=== PATIENT | male | born 1960 | race Caucasian/White ===

== ENCOUNTER 2022-10-21 08:24 | Inpatient (IN) | payer BC ==
--- OUTSIDE RECORDS SUMMARY | 2022-10-21 08:28 | XMS REPORT | Continuity of Care Document ---
:1960 Author Organization [facility] t Address [address] [place] [address] Care Team Providers Name Role Phone FLAQUITO ZALDIVAR JR Primary Care Physician Unavailable Nurse, Adc Pob Immunization Attending Clinician Unavailable Zuly León DO Attending Clinician ZULY LEÓN Attending Clinician Unavailable JOE PISANO Attending Clinician Unavailable SHERIN CONTRERAS Attending Clinician Unavailable Pob1, Acute Care Clinic Attending Clinician Unavailable Sherin Butcher Attending Clinician Payers Payer Name Policy Type Policy Number Effective Date Expiration Date S ource Problems Condition Condition Condition Status Onset Resolution Last Treating Co mments Source Name Details Category Date Date Treatment Clinician Date No known No known Disease Unive rs active active ity of problems problems [facility] Allergies, Adverse Reactions, Alerts Allergy Allergy Status Severity Reaction(s) Onset Inactive Treating Comm ents Source Name Type Date Date Clinician NO KNOWN Drug Active Univers ALLERGIE Class ity of S [facility] Social History Social Habit Start Date Stop Date Quantity Comments Source Tobacco use and 2019-08-22 2019-08-22 Never used [facility] exposure 00:00:00 00:00:00 [facility] Sex [birth year] [facility] 00:00:00 00:00:00 [facility] Smoking Status Start Date Stop Date Source Never smoker [facility] Medications Ordered Filled Start Stop Current Ordering Indication Dosage Frequency Signature Comments Components Source Medication Medication Date Date Medication? Clinician (SIG) Name Name benzonatate 2020- No [id number] 100mg Take 1 Univers (TESSALON 4-23 05-08 capsule by itFlorian) 100 00:00[place] 04:59 [place] capsule 00 :00 (three) [facility] daily for 14 days. gabapentin 2019-0 Yes Univers 300 mg 4-05 ity of capsule 00:00: [facility] gabapentin 2020-0 Yes Univers 300 mg 4-05 ity of capsule 00:00: [facility] allopurinoL 2019-0 Yes Univer s 300 mg 3-30 ity of tablet 00:00: [facility] glipiZIDE 2019-0 Yes Univers XL 10 mg 24 3-30 ity of hr tablet 00:00: [facility] amLODIPine 2019-0 Yes Univers 5 mg tablet 3-30 ity of 00:00: [facility] BYSTOLIC 5 2019-0 Yes Univers mg tablet 3-30 ity of 00:00: [facility] pravastatin 2019-0 Yes Univer s 40 mg 3-30 ity of tablet 00:00: [place] [address] [facility] valsartan 2019-0 Yes Univers 320 mg 3-30 ity of tablet 00:00: [place] [address] [facility] furosemide 2019-0 Yes Univers 40 mg 3-30 ity of tablet 00:00: [place] [address] [facility] potassium 2019-0 Yes Univers chloride 10 3-30 ity of mEq CR 00:00: [facility] 00 Medical Branch ONETOUCH 2019-0 Yes Univers ULTRA BLUE 3-30 ity of TEST STRIP 00:00: [facility] 00 Medical Branch allopurinoL 2019-0 Yes Univer s 300 mg 3-30 ity of tablet 00:00: [facility] glipiZIDE 2020-0 Yes Univers XL 10 mg 24 3-30 ity of hr tablet 00:00: [facility] amLODIPine 2019-0 Yes Univers 5 mg tablet 3-30 ity of 00:00: [place] [address] [facility] BYSTOLIC 5 2019-0 Yes Univers mg tablet 3-30 ity of 00:00: [place] [address] [facility] pravastatin 2020-0 Yes Univer s 40 mg 3-30 ity of tablet 00:00: [facility] valsartan 2020-0 Yes Univers 320 mg 3-30 ity of tablet 00:00: [facility] furosemide 2020-0 Yes Univers 40 mg 3-30 ity of tablet 00:00: [place] 00 [facility] potassium 2020-0 Yes Univers chloride 10 3-30 ity of mEq CR 00:00: [place] tablet 00 Medical Branch ONETOUCH 2020-0 Yes Univers ULTRA BLUE 3-30 ity of TEST STRIP 00:00: [place] strip 00 Medical Branch SSD 1 % 2020-0 Yes APPLY AA Univer s cream 3-20 QD. ity of 00:00: [facility] SSD 1 % 2020-0 Yes APPLY AA Univer s cream 3-20 QD. ity of 00:00: [place] [facility] Immunizations Ordered Filled Immunization Date Status Comments [facility] e Immunization Name Name SARS-COV-2 COVID-19 2021-02-25 Completed Unive rsity of MODERNA BOOSTER 00:00:00 [facility] ica VACCINE Branch SARS-COV-2 COVID-19 2020-07-26 Completed Unive rsity of MODERNA VACCINE 00:00:[facility] [place] SARS-COV-2 COVID-19 2020-06-28 Completed Unive rsity of MODERNA VACCINE 00:00:00 [facility] Vital Signs Vital Name Observation Time Observation Value Comments Source Systolic blood 2019-08-22 18:48:00 131 mm[Hg] Univer sity of pressure [facility] Diastolic blood 2019-08-22 18:48:00 76 mm[Hg] Unive rsity of pressure [facility] Heart rate 2019-08-22 18:46:00 75 /min [facility] Body temperature 2019-08-22 18:46:00 36.89 [facility] rate 2019-08-22 18:46:00 20 /min [facility] Body height 2019-08-22 18:46:00 168.9 cm [facility] Body weight 2019-08-22 18:46:00 163.295 kg [facility] BMI 2019-08-22 18:46:00 57.24 kg/m2 [facility] Oxygen saturation in 2019-08-22 18:46:00 96 /min [facility] Arterial blood by [facility] Pulse oximetry Branch Systolic blood 2019-08-22 18:48:00 131 mm[Hg] Univer sity of pressure [facility] Diastolic blood 2019-08-22 18:48:00 76 mm[Hg] Unive rsity of pressure [facility] Heart rate 2019-08-22 18:46:00 75 /min [facility] Body temperature 2019-08-22 18:46:00 36.89 Mary Univ ersity of [facility] Respiratory rate 2019-08-22 18:46:00 20 /min [facility] Body height 2019-08-22 18:46:00 168.9 cm [facility] Body weight 2019-08-22 18:46:00 163.295 kg [facility] BMI 2019-08-22 18:46:00 57.24 kg/m2 [facility] Oxygen saturation in 2019-08-22 18:46:00 96 /min [facility] Arterial blood by [facility] Pulse oximetry [place] Procedures Procedure Date / Time Performed Performing Clinician [facility] e SARS-COV-2 COVID-19 2021-02-25 19:22:52 Doctor Unassigned, No [facility] [place] VACCINE Name [facility] BOOSTER,0.25ML,IM (MODERNA) Encounters Start End Encounter Admission Attending Care Care Encounter Source Date/Time Date/Time Type Type Clinicians Facility Department ID 2021-02-25 2021-02-25 Imm/Inj Nurse, Adc Pob Immunization [facility] [id number] Univers 14:20:31 14:20:47 Visit Zuly León [id number] [facility] [id number] John helms PROFESSIO [phone] Tn dical NAL [address] [facility] 2021-02-25 2021-02-25 Outpatient Jose LEÓN [facility] [id number] Univers 14:00:00 14:20:47 ZULY itlottie [facility] 2020-07-26 2020-07-26 Outpatient [facility] [id number] Univers 13:25[facility]00 [facility] 2020-06-[facility] 2020-06-28 Outpatient Jose PISANO [facility] [id number] Univers 13:00:00 13:00:[facility] 2020-06-[facility] 2020-06-28 Outpatient Jose PISANO [facility] [id number] Univers 13:00:00 13:00:00 [facility] 2020-06-27 2020-06-27 Outpatient Jose PISANO [facility] [id number] Univers 16:00:00 16:00:00 JOE [facility] 2019-08-22 2019-08-22 [facility] [id number] Univers 14:00:00 14:00:00 SHERIN [facility] 2019-08-22 2019-08-22 Urgent Pob1, Acute [facility] [id number] 13:39:42 13:59:42 [facility] [id number] [place] [id number] Professio [phone] [place] [address] [address] 2019-08-22 2019-08-22 Urgent Pob1, Acute Care Clinic [facility] [id number] Univers 13:39:42 13:59:42 Sherin [facility] [id number] [facility] [id number] Abran as Professio [phone] Tn dical [address] Results This patient has no known results.
[2022-10-21 09:00] LABS: Absolute Lymphocytes (CBC) 3.3 K/uL (0.7-4.9); Hematocrit 41.8 % (39.6-49.0); Lymphocytes % 30.8 % (15.3-44.8); MCV 96.1 fL (80-100); MPV 8.6 fL (7.6-11.3); RBC Red Blood Cell Count 4.35 M/uL (4.33-5.43)
[2022-10-21 09:27] LABS: Albumin 3.1 g/dL (3.4-5.0); Bilirubin Total 0.9 mg/dL (0.2-1.0); Magnesium 1.8 mg/dL (1.6-2.4); Potassium 3.5 mEq/L (3.5-5.1); Protein, Total 7.3 g/dL (6.4-8.2); Troponin High Sensitivity 11.5 pg/mL (<58.9)
--- NOTE | 2022-10-21 09:28 | RAD REPORT ---
EXAM DESCRIPTION: RADChest Single View10/21/2022 9:14 am CLINICAL HISTORY: CHEST PAIN COMPARISON: Chest Single View dated 02/01/2022 TECHNIQUE: Portable AP view of the chest. FINDINGS: The lungs are clear.Decreased inspiratory effort, and poor penetration along the lung apic es limit evaluation. No pneumothorax or effusion. The cardiomediastinal contours are unremarkable. IMPRESSION: No acute cardiopulmonary process.
--- NOTE | 2022-10-21 10:26 | RAD REPORT ---
EXAM DESCRIPTION: CT - Head Brain Wo Cont - 10/21/2022 9:52 am CLINICAL HISTORY: CONFUSED COMPARISON: Abdomen Pelvis W Contrast dated 10/21/2022 TECHNIQUE: Noncontrast head CT images were obtained without IV contrast. Multiplanar reformats were generated and reviewed. All CT scans are performed using dose optimization technique as appropriate and may include automated exposure control or mA/KV adjustment according to patient size. FINDINGS: No intracranial hemorrhage, mass, or edema. Midline structures are unremarkable. Normal ventricular caliber for age. Lopes-white matter differentiation is preserved, without evidence of acute infarct. No abnormal extra- axial fluid collections. Mastoid air cells and visualized portions of the paranasal sinuses are clear. No acute bony findings. IMPRESSION: No evidence of an acute intracranial process.
--- NOTE | 2022-10-21 10:36 | RAD REPORT ---
EXAM DESCRIPTION: CT - Abdomen Pelvis W Contrast - 10/21/2022 9:54 am CLINICAL HISTORY: ABD PAIN COMPARISON: Abdomen Pelvis W Contrast dated 10/07/2016 TECHNIQUE: Thin cut axial CT imaging of the abdomen and pelvis was performed following intravenous a dministration of 95 mL Isovue 300. Multiplanar reformats were generated and reviewed. All CT scans are performed using dose optimization technique as appropriate and may include automated exposure control or mA/KV adjustment according to patient size. FINDINGS: No suspicious findings in the lung bases. The liver demonstrates nodular contour with segmental right lobe atrophy and left lobe hypertrophy co mpatible with cirrhotic change. Splenic enlargement, measuring 16.1 centimeter in long axis. Suspecte d gallbladder sludge. Adrenal gland, and pancreas show no suspicious findings. No intra or extrahepat ic biliary ductal dilation. Symmetric renal function is seen with no hydronephrosis or suspicious renal mass. Stable anterior rig ht mid to lower pole exophytic cyst measuring 3.5 centimeter. No dilated bowel loops or bowel wall thickening. No free air, free fluid or inflammatory stranding. N o hernia, or suspicious mass. Pronounced left inguinal and left pelvic sidewall adenopathy. Largest node present in the medial left inguinal region measuring 2.4 x 3.1 centimeter with adjacent mild inflammatory changes. Largest left pelvic sidewall lymph node for reference measures 2.7 x 2.1 centimeter. Other mildly prominent lymph nodes throughout the retroperitoneum, nonspecific, although they are increasingly prominent since 17. No suspicious bony findings. IMPRESSION: Left inguinal and left pelvic sidewall adenopathy with adjacent fat stranding. Findings which suggest an infectious or inflammatory process, although regional involvement in the setting of systemic adenopathy or even lymphoma cannot be entirely excluded. Please correlate clinically. Mildly prominent retroperitoneal lymph nodes also present. Other stable findings as above. The findings were communicated to Clyde Ramírez on 10/21/2022 at 10:32 hours.
[2022-10-21] MEDS ORDERED: NA CHLORIDE 0.9% 1,000 ML ONE ×2 (10:58→16:24)
[2022-10-21 11:37] LABS: Specific Gravity > 1.030 (1.005-1.030); Urine Bacteria None Seen /HPF (<20); Urine Bilirubin NEGATIVE (Negative); Urine Blood Negative (Negative); Urine Clarity Clear (Clear); Urine Color Light-Yellow (Yellow); Urine Glucose NEGATIVE (Negative); Urine Mucus Slight /HPF (None Seen); Urine Protein TRACE (Negative); Urine RBC <5 /HPF (None Seen); Urine Urobilinogen Normal (Normal); Urine pH 5.5 (5.0-7.0)
--- NOTE | 2022-10-21 13:12 | EDPHYS ---
Physician Documentation [facility] Name: Shaggy Hernandez Age: 62 yrs Sex: Male : 1960 Arrival Date: 10/21/2022 Time: 08:24 Bed 20 Private MD: Roshan Ag ED Physician Clyde Ramírez HPI: 10/21 08:45 This 62 yrs old Male presents to ER via Wheelchair with complaints of Breathing kb Difficulty, Back Pain, Leg Pain, confusion, Dizziness. 08:46 The patient has not recently seen a physician. Pt reports nausea, abd pain, chest pain, kb confusion, shortness of breath, elevated blood sugar (140s) and fatigue that started 6 days ago. States he thought he had gotten overheated during a trip that he took over the weekend, but he has been hydrating without relief. States he knows something is off because his blood sugar is normally less than 120 and it has been 130s-140s for the past few days. Historical: - Allergies: 08:37 Strawberries; cm10 08:37 Latex, Natural Rubber; cm10 08:37 egg-based syrums; cm10 08:37 shellfish derived; cm10 - Home Meds: 12:57 gabapentin 300 mg oral capsule [Active]; loratadine 10mg daily [Active]; allopurinol kc6 300 mg Oral tablet [Active]; Lasix 40 mg Oral tablet [Active]; amlodipine 5 mg tablet [Active]; valsartan 320 mg oral tablet [Active]; pravastatin 40mg [Active]; Bystolic 5 mg oral tablet [Active]; glipizide 10 mg Oral tablet [Active]; - PMHx: 12:57 Diabetes mellitus; Hypertensive disorder; Hypercholesterolemia; Gout; neuropathy; kc6 Congestive heart failure; - PSHx: 12:57 Appendectomy; umbilical hernia repair x3; kc6 - Immunization history:: Adult Immunizations up to date. - Social history:: Smoking status: Patient denies any tobacco usage or history of. ROS: 08:46 Constitutional: Negative for fever, chills, and weight loss. kb 08:46 Cardiovascular: Positive for chest pain. 08:46 Respiratory: Positive for shortness of breath. 08:46 Abdomen/GI: Positive for abdominal pain, nausea. 08:46 Neuro: Positive for confusion. 08:46 All other systems are negative. Exam: 08:46 Constitutional: This is a well developed, well nourished patient who is awake, alert, kb and in no acute distress. Head/Face: Normocephalic, atraumatic. ENT: Moist Mucous membranes Cardiovascular: Regular rate and rhythm with a normal S1 and S2. No gallops, murmurs, or rubs. No pulse deficits. Respiratory: Respirations even and unlabored. No increased work of breathing. Talking in full sentences Skin: Warm, dry with normal turgor. Normal color. MS/ Extremity: Pulses equal, no cyanosis. Neurovascular intact. Full, normal range of motion. Neuro: Awake and alert, GCS 15, oriented to person, place, time, and situation. Moves all extremities. Normal gait. 08:46 Abdomen/GI: Inspection: obese Bowel sounds: normal, Palpation: soft, in all quadrants, moderate abdominal tenderness, in the right lower quadrant and left lower quadrant. 08:49 ECG was reviewed by the Attending Physician. kb Vital Signs: 08:38 BP 154 / 66; Pulse 117; Resp 18; Temp 99.9; Pulse Ox 95% on R/A; Weight 164.2 kg; cm10 Height 5 ft. 7 in. ; 09:35 BP 132 / 66; Pulse 102; Resp 20 S; Pulse Ox 98% on R/A; kc6 10:36 BP 106 / 71; Pulse 101; Resp 21 S; Pulse Ox 97% on R/A; kc6 11:16 BP 133 / 64; Pulse 100; Resp 25 S; Pulse Ox 100% on R/A; kc6 11:58 BP 139 / 73; Pulse 98; Resp 28 S; Pulse Ox 98% on R/A; kc6 12:32 BP 144 / 72; Pulse 98; Resp 31 S; Temp 99.5(O); Pulse Ox 98% on R/A; kc6 13:50 BP 151 / 69; Pulse 102; Resp 33 S; Pulse Ox 93% on R/A; kc6 14:45 BP 129 / 86; Pulse 94; Resp 30 S; Temp 101.7(O); Pulse Ox 90% on R/A; kc6 08:38 Body Mass Index 56.70 (164.20 kg, 170.18 cm) cm10 MDM: 08:28 Patient medically screened. kb 08:45 Data reviewed: vital signs, nurses notes. kb 10/21 08:36 Order name: CBC with Diff; Complete Time: 09:20 kb 10/21 08:36 Order name: Magnesium; Complete Time: 09:45 kb 10/21 08:36 Order name: NT PRO-BNP; Complete Time: 09:45 kb 10/21 08:36 Order name: Troponin HS; Complete Time: 09:45 kb 10/21 08:36 Order name: CMP; Complete Time: 09:45 kb 10/21 08:36 Order name: Urinalysis w/ reflexes; Complete Time: 11:41 kb 10/21 08:36 Order name: CPK; Complete Time: 09:45 kb 10/21 08:36 Order name: Flu; Complete Time: 09:57 kb 10/21 08:36 Order name: SARS-COV-2 RT PCR; Complete Time: 09:45 kb 10/21 10:09 Order name: Blood Culture Adult (2) kb 10/21 10:09 Order name: Lactate w/ 2H reflex if indic.; Complete Time: 11:21 kb 10/21 13:47 Order name: CBC with Automated Diff EDMS 10/21 13:47 Order name: CBC with Automated Diff EDMS 10/21 13:47 Order name: Comprehensive Metabolic Panel EDMS 10/21 13:47 Order name: Comprehensive Metabolic Panel EDMS 10/21 13:47 Order name: Protime (+INR) EDMS 10/21 13:47 Order name: Protime (+INR) EDMS 10/21 13:47 Order name: PTT, Activated Partial Thromb EDMS 10/21 13:47 Order name: PTT, Activated Partial Thromb EDMS 10/21 13:47 Order name: Troponin High Sensitivity EDMS 10/21 13:47 Order name: Troponin High Sensitivity EDMS 10/21 13:47 Order name: Troponin High Sensitivity EDMS 10/21 15:20 Order name: Lactate Sepsis 2 HR Follow-up; Complete Time: 15:20 EDMS 10/21 08:36 Order name: XRAY Chest (1 view); Complete Time: 09:45 kb 10/21 08:36 Order name: CT Head Brain wo Cont; Complete Time: 10:31 kb 10/21 08:36 Order name: CT Abd/Pelvis - IV Contrast Only; Complete Time: 10:37 kb 10/21 08:36 Order name: EKG; Complete Time: 08:36 kb 10/21 13:47 Order name: Heart Healthy EDMS 10/21 08:36 Order name: Cardiac monitoring; Complete Time: 08:50 kb 10/21 08:36 Order name: EKG - Nurse/Tech; Complete Time: 08:50 kb 10/21 08:36 Order name: IV Saline Lock; Complete Time: 08:50 kb 10/21 08:36 Order name: Labs collected and sent; Complete Time: 08:50 kb 10/21 08:36 Order name: O2 Per Protocol; Complete Time: 08:50 kb 10/21 08:36 Order name: O2 Sat Monitoring; Complete Time: 08:50 kb EC:49 Rate is 105 beats/min. Rhythm is regular. QRS Delta is Normal. WI interval is normal at kb 162 msec. QRS interval is normal at 82 msec. QT interval is normal at 454 msec. Administered Medications: 11:04 Drug: NS 0.9% IV 1000 ml Route: IV; Rate: 1000 ml; Site: right antecubital; kc6 15:10 Follow up: Response: No adverse reaction; IV Status: Completed infusion; IV Intake: kc6 1000ml 13:27 Drug: Acetaminophen PO 1000 mg Route: PO; kc6 15:10 Follow up: Response: No adverse reaction; Temperature is increased kc6 13:27 Drug: MethylPrednisoLONE IVP 125 mg Route: IVP; Site: right antecubital; kc6 15:10 Follow up: Response: No adverse reaction kc6 13:28 Drug: Albuterol Inhalation 2.5 mg Route: Inhalation; kc6 15:10 Follow up: Response: No adverse reaction kc6 13:28 Drug: Ipratropium Inhalation Aerosol 0.5 mg Route: Inhalation; kc6 15:10 Follow up: Response: No adverse reaction kc6 13:49 Drug: Piperacillin-Tazobactam IVPB 3.375 grams Route: IVPB; Infused Over: 60 mins; kc6 Site: right antecubital; 15:10 Follow up: Response: No adverse reaction; IV Status: Completed infusion; IV Intake: kc6 100ml 15:08 Drug: Ibuprofen PO 800 mg Route: PO; kc6 Disposition: 17:48 Co-signature as Attending Physician, Clyde Ramírez MD I reviewed the patient's care rn provided by the Advanced Practice Provider and agree with the diagnosis and treatment plan. Disposition Summary: 10/21/22 13:11 Hospitalization Ordered Hospitalization Status: Inpatient Admission kb Provider: Mike Al Condition: Stable kb Problem: new kb Symptoms: are unchanged kb Bed/Room Type: Standard kb Location: Telemetry/MedSurg (Inpatient)(10/21/22 16:14) ja1 Room Assignment: 216(10/21/22 16:14) ja Diagnosis - Fever, unspecified kb - Chest pain, unspecified kb - Dyspnea kb - Acute lymphadenitis, unspecified kb Forms: - Medication Reconciliation Form kb - SBAR form kb Signatures: Dispatcher [employer] EDMS Margot Soria, [facility]-C SUPER[facility]OR [facility]-Ckb Clyde Ramírez MD MD rn Leal, Jahala RN RN [id number] Barry Rivera RN RN ja1 Sara Angeles RN RN [email or web address] Gladys Byers RN RN cm10 Corrections: (The following items were deleted from the chart) 14:57 13:11 Telemetry/MedSurg (Inpatient) kb jl7 14:57 13:11 kb jl7 16:14 14:57 [facility] ER HOLD jl7 ja1 16:14 14:57 ERHOLD- jl7 ja1
--- NOTE | 2022-10-21 13:12 | ER ---
Nurse's Notes [facility] Name: Shaggy Hernandez Age: 62 yrs Sex: Male : 1960 Arrival Date: 10/21/2022 Time: 08:24 Bed 20 Private MD: Roshan Ag Diagnosis: Fever, unspecified;Chest pain, unspecified;Dyspnea;Acute lymphadenitis, unspecified Presentation: 10/21 08:38 Chief complaint: Patient states: confusion, dizziness, elevated blood sugar (130s), cm10 nausea and vomiting, increased shortness of breath, chest discomfort and lower abdominal X1 week. Patient A\T\Ox4 in triage. Coronavirus screen: Vaccine status: Patient reports receiving the 2nd dose of the covid vaccine. Client denies travel out of the [place] in the last 14 days. At this time, the client does not indicate any symptoms associated with coronavirus-19. Ebola Screen: Patient denies travel to an Ebola-affected area in the 21 days before illness onset. Initial Sepsis Screen: Does the patient meet any 2 criteria? HR > 90 bpm. Does the patient have a suspected source of infection? No. Patient's initial sepsis screen is negative. Risk Assessment: Do you want to hurt yourself or someone else? Patient reports no desire to harm self or others. Onset of symptoms was October 14, 2022. 08:38 Method Of Arrival: Wheelchair cm10 08:38 Acuity: MILTON 2 cm10 Historical: - Allergies: 08:37 Strawberries; cm10 08:37 Latex, Natural Rubber; cm10 08:37 egg-based syrums; cm10 08:37 shellfish derived; cm10 - Home Meds: 12:57 gabapentin 300 mg oral capsule [Active]; loratadine 10mg daily [Active]; allopurinol kc6 300 mg Oral tablet [Active]; Lasix 40 mg Oral tablet [Active]; amlodipine 5 mg tablet [Active]; valsartan 320 mg oral tablet [Active]; pravastatin 40mg [Active]; Bystolic 5 mg oral tablet [Active]; glipizide 10 mg Oral tablet [Active]; - PMHx: 12:57 Diabetes mellitus; Hypertensive disorder; Hypercholesterolemia; Gout; neuropathy; kc6 Congestive heart failure; - PSHx: 12:57 Appendectomy; umbilical hernia repair x3; kc6 - Immunization history:: Adult Immunizations up to date. - Social history:: Smoking status: Patient denies any tobacco usage or history of. Screenin:52 [facility] ED Fall Risk Assessment (Adult) History of falling in the last 3 months, kc6 including since admission No falls in past 3 months (0 pts) Confusion or Disorientation No (0 pts) Intoxicated or Sedated No (0 pts) Impaired Gait No (0 pts) Mobility Assist Device Used No (0 pt) Altered Elimination No (0 pt) Score/Fall Risk Level 0 - 2 = Low Risk Oriented to surroundings, Maintained a safe environment, Educated pt \T\ family on fall prevention, incl call for assistance when getting out of bed, Assessed \T\ reinforced patient's understanding of fall precautions, Hourly rounding (assess needs \T\ fall precautionary measures) done. Abuse screen: Denies threats or abuse. Denies injuries from another. Nutritional screening: No deficits noted. Tuberculosis screening: No symptoms or risk factors identified. Assessment: 08:51 General: Appears in no apparent distress. comfortable, obese, Behavior is calm, kc6 cooperative, appropriate for age. Pain: Complains of pain in back, right leg and left leg and left lower quadrant and right lower quadrant. Neuro: Dia Agitation-Sedation Scale (RASS): 0 - Alert and Calm Level of Consciousness is awake, alert, obeys commands, Oriented to person, place, time, situation, Appropriate for age. Cardiovascular: Heart tones S1 S2 present Capillary refill < 3 seconds Rhythm is sinus tachycardia. Respiratory: Reports shortness of breath at rest on exertion Airway is patent Trachea midline Respiratory effort is even, labored, pursed lip, Respiratory pattern is symmetrical, tachypnea Breath sounds are clear bilaterally. GI: Reports lower abdominal pain, diarrhea, nausea, Patient currently denies vomiting. : No signs and/or symptoms were reported regarding the genitourinary system. EENT: No signs and/or symptoms were reported regarding the EENT system. Derm: No signs and/or symptoms reported regarding the dermatologic system. Skin is intact, Skin is pink, warm \T\ dry. Musculoskeletal: No signs and/or symptoms reported regarding the musculoskeletal system. Circulation, motion, and sensation intact. Capillary refill < 3 seconds, Range of motion: intact in all extremities. 10:02 Reassessment: Patient appears in no apparent distress at this time. No changes from kc6 previously documented assessment. Patient and/or family updated on plan of care and expected duration. Pain level reassessed. 11:16 Reassessment: Patient appears in no apparent distress at this time. No changes from kc6 previously documented assessment. Patient and/or family updated on plan of care and expected duration. Pain level reassessed. 12:32 Reassessment: Patient appears in no apparent distress at this time. No changes from kc6 previously documented assessment. Patient and/or family updated on plan of care and expected duration. Pain level reassessed. 13:49 Reassessment: Patient appears in no apparent distress at this time. No changes from kc6 previously documented assessment. Patient and/or family updated on plan of care and expected duration. Pain level reassessed. 14:45 Reassessment: Patient appears in no apparent distress at this time. No changes from kc6 previously documented assessment. Patient and/or family updated on plan of care and expected duration. Pain level reassessed. pt reports feeling warm. temp increased to 101.7 after PO tylenol. RELL Pickering notified. 15:12 Reassessment: please see [facility] for further charting. kc6 Vital Signs: 08:38 BP 154 / 66; Pulse 117; Resp 18; Temp 99.9; Pulse Ox 95% on R/A; Weight 164.2 kg; cm10 Height 5 ft. 7 in. ; 09:35 BP 132 / 66; Pulse 102; Resp 20 S; Pulse Ox 98% on R/A; kc6 10:36 BP 106 / 71; Pulse 101; Resp 21 S; Pulse Ox 97% on R/A; kc6 11:16 BP 133 / 64; Pulse 100; Resp 25 S; Pulse Ox 100% on R/A; kc6 11:58 BP 139 / 73; Pulse 98; Resp 28 S; Pulse Ox 98% on R/A; kc6 12:32 BP 144 / 72; Pulse 98; Resp 31 S; Temp 99.5(O); Pulse Ox 98% on R/A; kc6 13:50 BP 151 / 69; Pulse 102; Resp 33 S; Pulse Ox 93% on R/A; kc6 14:45 BP 129 / 86; Pulse 94; Resp 30 S; Temp 101.7(O); Pulse Ox 90% on R/A; kc6 08:38 Body Mass Index 56.70 (164.20 kg, 170.18 cm) cm10 ED Course: 08:26 Patient arrived in ED. am2 08:26 Roshan Ag MD is Private Physician. am2 08:28 [facility] kb 08:28 Clyde Ramírez MD is Attending Physician. kb 08:32 Arm band placed on Patient placed in an exam room, on a stretcher. kc6 08:40 Triage completed. cm10 08:50 Sara Angeles, JESUS is Primary Nurse. kc6 08:50 Inserted saline lock: 20 gauge in right antecubital area, using aseptic technique. kc6 Blood collected. Patient maintains SpO2 saturation greater than 95% on room air. 08:52 Patient has correct armband on for positive identification. Bed in low position. Call kc6 light in reach. Side rails up X2. Adult w/ patient. 09:16 XRAY Chest (1 view) In Process Unspecified. EDMS 09:54 CT Head Brain wo Cont In Process Unspecified. EDMS 09:56 CT Abd/Pelvis - IV Contrast Only In Process Unspecified. EDMS 10:36 Inserted saline lock: 20 gauge in left antecubital area, using aseptic technique. Blood kc6 collected. 12:31 Assisted to bedside commode. aw1 13:11 Mike Al MD is Hospitalizing Provider. kb Administered Medications: 11:04 Drug: NS 0.9% IV 1000 ml Route: IV; Rate: 1000 ml; Site: right antecubital; kc6 15:10 Follow up: Response: No adverse reaction; IV Status: Completed infusion; IV Intake: kc6 1000ml 13:27 Drug: Acetaminophen PO 1000 mg Route: PO; kc6 15:10 Follow up: Response: No adverse reaction; Temperature is increased kc6 13:27 Drug: MethylPrednisoLONE IVP 125 mg Route: IVP; Site: right antecubital; kc6 15:10 Follow up: Response: No adverse reaction kc6 13:28 Drug: Albuterol Inhalation 2.5 mg Route: Inhalation; kc6 15:10 Follow up: Response: No adverse reaction kc6 13:28 Drug: Ipratropium Inhalation Aerosol 0.5 mg Route: Inhalation; kc6 15:10 Follow up: Response: No adverse reaction kc6 13:49 Drug: Piperacillin-Tazobactam IVPB 3.375 grams Route: IVPB; Infused Over: 60 mins; kc6 Site: right antecubital; 15:10 Follow up: Response: No adverse reaction; IV Status: Completed infusion; IV Intake: kc6 100ml 15:08 Drug: Ibuprofen PO 800 mg Route: PO; kc6 Intake: 15:10 IV: 1000ml; Total: 1000ml. kc6 15:10 IV: 100ml; Total: 1100ml. kc6 Outcome: 13:11 Decision to Hospitalize by Provider. kb 17:15 Patient left the ED. os Signatures: Dispatcher [employer] EDMS Margot Soria, JUSTINO-C JUNIOR ACCOUNT MANAGER-Nellie Valenzuela am2 Sara Angeles, RN RN kc6 Sheila Darling RN RN os Gladys Byers RN RN cm10 Elizabeth Dimas aw1 Corrections: (The following items were deleted from the chart) 10:36 10:36 BP 106 / 71; Pulse 10bpm; Resp 21bpm; Spontaneous; Pulse Ox 97% RA; kc6 kc6 12:32 10:02 Reassessment: Patient appears in no apparent distress at this time. No changes kc6 from previously documented assessment. Patient and/or family updated on plan of care and expected duration. Pain level reassessed. Patient is alert, oriented x 3, equal unlabored respirations, skin warm/dry/pink. kc6 12:32 11:16 Reassessment: Patient appears in no apparent distress at this time. No changes kc6 from previously documented assessment. Patient and/or family updated on plan of care and expected duration. Pain level reassessed. Patient is alert, oriented x 3, equal unlabored respirations, skin warm/dry/pink. kc6 13:51 12:32 BP 144 / 72; Pulse 98bpm; Resp 31bpm; Spontaneous; Pulse Ox 98% RA; kc6 kc6
[2022-10-21] MEDS ORDERED: ACETAMINOPHEN 500 MG TAB ONE (13:23)
[2022-10-21] MEDS ORDERED: PIPERACIL/TAZO 3.375 GM VIAL IV ONE (13:23)
[2022-10-21] MEDS ORDERED: NA CHLORIDE 0.9% 100 ML ONE (13:23)
[2022-10-21] MEDS ORDERED: ALBUTEROL 2.5 MG/3 ML NEB SOL ONE (13:26)
[2022-10-21] MEDS ORDERED: IPRATROPIUM BROM 0.5MG/2.5ML ONE (13:27)
[2022-10-21] MEDS ORDERED: HYDROCORTISONE SUC 100 MG INJ ONE ×2 (13:28→13:30)
[2022-10-21] MEDS ORDERED: ACETAMINOPHEN 500 MG TAB PO PRN (13:39)
[2022-10-21] MEDS ORDERED: MORPHINE 2 MG/ML SYR IV PRN (13:39)
[2022-10-21] MEDS ORDERED: ALBUTEROL 2.5 MG/3 ML NEB SOL NEB PRN (13:39)
[2022-10-21] MEDS ORDERED: ONDANSETRON 4 MG/2 ML VIAL IV PRN (13:39)
[2022-10-21] MEDS: NA CHLORIDE 0.9% 1,000 ML IV SCH (14:00)
[2022-10-21] MEDS: GABAPENTIN 300 MG CAP PO SCH ×2 (14:00→21:19)
[2022-10-21] MEDS ORDERED: IBUPROFEN 400 MG TAB ONE (15:13)
[2022-10-21] MEDS ORDERED: GABAPENTIN 300 MG CAP ONE (16:24)
--- NOTE | 2022-10-21 16:49 | P.HP ---
Certification for Inpatient Patient admitted to: Inpatient With expected LOS: >2 Midnights Patient will require the following post-hospital care: None Practitioner: I am a practitioner with admitting privileges, knowledge of patient current condition, hospital course, and medical plan of care. Services: Services provided to patient in accordance with Admission requirements found in Title 42 Section 412.3 of the Code of Federal Regulations Patient History Date of Service: 10/21/22 Reason for admission: Shortness of breath; chest pain; fever-101 History of Present Illness: Patient is a very pleasant 62-year-old gentleman who is morbidly obese with a BMI greater than 50 and a history of left lower extremity wound who presents to the hospital with chest discomfort. His initial complaint was having some chest pain. He also noted that his home health nurse-[facility]-was worried about his breathing so she wanted him to go to the hospital to get evaluated. She told him she was concerned he had a respiratory infection. Patient states that his left lower extremity wound is healing well with the use of a Unna boot. He has had some dysuria and he had to wake up a couple times in the morning to urinate which is not like him. He noticed he was feeling really weak and kind of just has been dragging. He was advised to come to the emergency room so he was brought in his work-up has shown that he has been running fevers of 101.7, he has been slightly hypoxic with O2 sats of 87% on room air, and his lactic acid level was elevated. CT of the abdomen and pelvis revealed that he had inguinal and pelvic lymphadenopathy. The left inguinal lymph node is fairly easily palpable. Patient may need a biopsy performed. Patient denies any significant weight loss, patient denies any night sweats, but he is having fevers. We will get a dedicated CT scan in the morning with contrast as long as his renal function is stable. Because of patient's complex medical condition and unknown etiology of fever along with chest pain and shortness of breath I believe he is to need an inpatient hospitalization to work him up a little more extensively. He has a wound to the left leg which appears to be healing, but he is newly short of breath and hypoxic with the CT imaging findings of the diffuse lymphadenopathy I believe he warrants a complete work-up along with a biopsy to further evaluate the fever of unknown etiology. Allergies egg Allergy (Verified 02/01/22 10:53) Itching latex Allergy (Verified 02/01/22 10:53) Itching/Hives/Rash shellfish derived Allergy (Verified 02/01/22 10:53) Itching strawberry Allergy (Verified 02/01/22 10:53) Itching/Hives/Rash Home Medications: Amlodipine Besylate 5 mg PO DAILY 01/08/18 Furosemide [Lasix] 40 mg PO BID 01/08/18 Glipizide [Glipizide Xl] 20 mg PO DAILY 01/08/18 Loratadine [Claritin] 10 mg PO DAILY 01/08/18 Nebivolol HCl [Bystolic] 5 mg PO DAILY 01/08/18 Potassium Oral Tab [Klor-Con 10 mEq Tab] 40 meq PO DAILY 01/08/18 Pravastatin Sodium [Pravachol] 40 mg PO DAILY 01/08/18 allopurinoL [Zyloprim] 300 mg PO DAILY 01/08/18 Ascorbic Acid [C-1000] 1,000 mg PO DAILY 12/28/20 Gabapentin 300 mg PO TID 12/28/20 Valsartan 300 mg PO DAILY 12/28/20 Acetaminophen [Tylenol] 650 mg PO Q6HP PRN 01/06/21 - Past Medical/Surgical History Diabetic: Yes -: DM -: Gout -: HTN -: Lymphadema -: Sleep apnea -: Morbid obesity -: Hyperlipidemia -: Allergic rhinitis -: Umbilical hernia repair x3 -: Appendectomy -: Tonsilectomy - Family History Father Family History: Reviewed- Non-Contributory - Social History Smoking Status: Never smoker Alcohol use: No CD- Drugs: No Review of Systems 10-point ROS is otherwise unremarkable Physical Examination - Vital Signs Temperature: 98 F Blood Pressure: 140/80 Pulse: 80 Respirations: 18 Pulse Ox (%): 95 - Physical Exam General: Alert, In no apparent distress, Oriented x3, Obese HEENT: Atraumatic, PERRLA, Mucous membr. moist/pink, EOMI, Sclerae nonicteric Neck: Supple, 2+ carotid pulse no bruit, No LAD, Without JVD or thyroid abnormality Respiratory: Clear to auscultation bilaterally, Normal air movement Cardiovascular: Regular rate/rhythm, Normal S1 S2, No murmurs Gastrointestinal: Normal bowel sounds, Soft and benign, Non-distended, No tenderness Musculoskeletal: No clubbing, No swelling, No tenderness Integumentary: No rashes Neurological: Normal speech, Normal tone, Sensation intact, Cranial nerves 3-12 intact, Normal affect, Abnormal gait, Abnormal strength Lymphatics: Inguinal lymphadenopathy - Studies Laboratory Data (last 24 hrs) 10/21/22 08:47: Sodium 138, Potassium 3.5, BUN 17, Creatinine 1.04, Glucose 169 H, Magnesium 1.8, Total Bilirubin 0.9, AST 36, ALT 20, Alkaline Phosphatase 95 10/21/22 08:47: WBC 10.60, Hgb 14.1, Hct 41.8, Plt Count 134 L Microbiology Data (last 24 hrs): 10/21/22 08:47 Nasopharnyx Influenza Type A Antigen Screen - Final 10/21/22 08:47 Nasopharnyx Influenza Type B Antigen Screen - Final Assessment & Plan - Problems (Diagnosis) (1) LAD (lymphadenopathy), inguinal Current Visit: Yes Status: Acute (2) Gout Current Visit: No Status: Acute (3) Hyperlipidemia Current Visit: No Status: Acute (4) Hypertension Current Visit: No Status: Acute (5) Diabetes Current Visit: No Status: Chronic (6) Lymphedema Current Visit: No Status: Chronic (7) Fever Current Visit: Yes Status: Acute (8) Hypoxemia Current Visit: Yes Status: Acute - Plan Plan: 1. Continue with IV antibiotics 2. Will panculture 3. Repeat chest x-ray 4. CT scan of the chest if symptoms not improving 5. Pulmonary consultation 6. Continue with nebs as needed 7. O2 per protocol 8. Continue with gentle hydration 9. Repeat labs including CBC and renal function in a.m. Serial troponins and EKG 10. GI and DVT prophylaxis Discharge Plan: Home Plan to discharge in: Greater than 2 days - Advance Directives Does patient have a Living Will: No Does patient have a Durable POA for Healthcare: No - Code Status/Comfort Care Code Status Assessed: Yes Code Status: Full Code Critical Care: No Time Spent Managing PTS Care (In Minutes): 45
[2022-10-21 18:18] VITALS: BMI 50.8
[2022-10-21] MEDS: ACETAMINOPHEN 325 MG TABLET PO SCH (19:46)
[2022-10-21] MEDS ORDERED: FUROSEMIDE 40 MG TABLET PO SCH (21:00)
[2022-10-21] MEDS: ATORVASTATIN 10 MG TAB PO SCH (21:19)
[2022-10-22] MEDS: ACETAMINOPHEN 325 MG TABLET PO SCH ×3 (00:46→12:50)
[2022-10-22] MEDS: NA CHLORIDE 0.9% 1,000 ML IV SCH ×2 (03:20→16:40)
[2022-10-22] MEDS ORDERED: HOME MED 1 EA UNK (Glipizide [Glipizide Xl] 10 MG Tab.Er.24) PO SCH (09:00)
[2022-10-22] MEDS ORDERED: ASCORBIC ACID 1000 MG PO SCH (09:00)
[2022-10-22] MEDS ORDERED: HOME MED 1 EA UNK (Pravastatin Sodium [Pravachol] 40 MG Tablet) PO SCH (09:00)
[2022-10-22] MEDS ORDERED: ATORVASTATIN 10 MG TAB PO SCH (09:00)
[2022-10-22] MEDS ORDERED: HOME MED 1 EA UNK (Valsartan [Valsartan] 320 MG Tablet) PO SCH (09:00)
[2022-10-22] MEDS: NEBIVOLOL HCL 5 MG TAB PO SCH (10:33)
[2022-10-22] MEDS: GABAPENTIN 300 MG CAP PO SCH ×3 (10:33→21:00)
[2022-10-22] MEDS: allopurinoL 300 MG TAB PO SCH (10:34)
[2022-10-22] MEDS: LORATADINE 10 MG TAB PO SCH (10:34)
[2022-10-22] MEDS: VALSARTAN 160 MG TAB PO SCH (10:34)
[2022-10-22] MEDS: AMLODIPINE 5 MG TAB PO SCH (10:34)
[2022-10-22] MEDS: ASCORBIC ACID 500 MG TABLET PO SCH (10:34)
[2022-10-22] MEDS: POTASSIUM CL SA 10 MEQ TAB PO SCH (10:34)
[2022-10-22] MEDS: GLIPIZIDE S.A. 5 MG TAB PO SCH (10:41)
--- NOTE | 2022-10-22 10:57 | RAD REPORT ---
EXAM DESCRIPTION: CT - Chest Angio - 10/22/2022 10:06 am CLINICAL HISTORY: sob COMPARISON: None. TECHNIQUE: Dynamically enhanced axial 3 mm thick images of the chest were obtained during administra tion of 100 mL Isovue 370 IV contrast. Coronal and oblique reconstruction images were generated and r eviewed. Exam utilizes a protocol for optimal evaluation of pulmonary arterial tree. Maximum intensity projections 3D imaging was utilized All CT scans are performed using dose optimization technique as appropriate and may include automated exposure control or mA/KV adjustment according to patient size. FINDINGS: The opacification the pulmonary arteries is suboptimal. No gross central pulmonary embolus seen A thoracic aortic aneurysm is not noted. A pleural effusion is not seen. A pericardial effusion is not seen. A lung consolidation is not present. Cirrhosis with splenomegaly IMPRESSION: No gross central pulmonary embolus seen
[2022-10-22 13:51] LABS: Absolute Lymphocytes (CBC) 2.6 K/uL (0.7-4.9); Hematocrit 44.7 % (39.6-49.0); Lymphocytes % 29.5 % (15.3-44.8); MCV 96.1 fL (80-100); RBC Red Blood Cell Count 4.65 M/uL (4.33-5.43)
[2022-10-22 14:05] LABS: Albumin 3.1 g/dL (3.4-5.0); Bilirubin Total 0.6 mg/dL (0.2-1.0); Potassium 3.5 mEq/L (3.5-5.1); Protein, Total 7.8 g/dL (6.4-8.2)
[2022-10-22 16:31] LABS: Protime INR 0.8
[2022-10-22] MEDS: ATORVASTATIN 10 MG TAB PO SCH (21:00)
[2022-10-23] MEDS: ACETAMINOPHEN 325 MG TABLET PO SCH ×2 (00:04→05:27)
[2022-10-23] MEDS: NA CHLORIDE 0.9% 1,000 ML IV SCH (00:04)
--- NOTE | 2022-10-23 05:12 | P.PN ---
Subjective Date of Service: 10/22/22 Nighttime still spiking fevers. Will change to inpatient. Most likely related to lymphadenopathy has blood cultures are negative. No source of infection identified. Patient is wanting to go homeIn a.m. Very unlikely if he keeps spiking fevers like this. 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 Review of Systems 10-point ROS is otherwise unremarkable Physical Examination - Vital Signs Temperature: 97.0 F Blood Pressure: 116/59 Pulse: 90 Respirations: 18 Pulse Ox (%): 92 - Physical Exam General: Alert, In no apparent distress, Oriented x3 HEENT: Atraumatic, PERRLA, EOMI Neck: Supple, JVD not distended Respiratory: Clear to auscultation bilaterally, Normal air movement Cardiovascular: Regular rate/rhythm, Normal S1 S2 Gastrointestinal: Normal bowel sounds, No tenderness Musculoskeletal: No tenderness Integumentary: No rashes Neurological: Normal speech, Normal tone, Normal affect Lymphatics: No axilla or inguinal lymphadenopathy - Studies Medications List Reviewed: Yes Assessment & Plan - Problems (Diagnosis) (1) LAD (lymphadenopathy), inguinal Current Visit: Yes Status: Acute (2) Gout Current Visit: No Status: Acute (3) Hyperlipidemia Current Visit: No Status: Acute (4) Hypertension Current Visit: No Status: Acute (5) Diabetes Current Visit: No Status: Chronic (6) Lymphedema Current Visit: No Status: Chronic (7) Fever Current Visit: Yes Status: Acute (8) Hypoxemia Current Visit: Yes Status: Acute - Plan Plan: 1. Holding IV antibiotics as no source identified 2. Will panculture 3. Repeat chest x-ray 4. CT scan of the chest if symptoms not improving 5. Pulmonary consultation 6. Continue with nebs as needed 7. O2 per protocol 8. Continue with gentle hydration 9. Repeat labs including CBC and renal function in a.m. Serial troponins and EKG 10. GI and DVT prophylaxis Discharge Plan: Home Plan to discharge in: Greater than 2 days - Advance Directives Does patient have a Living Will: No Does patient have a Durable POA for Healthcare: No - Code Status/Comfort Care Code Status: Full Code Critical Care: No Time Spent Managing PTS Care (In Minutes): 45
[2022-10-23 05:51] LABS: Specific Gravity > 1.030 (1.005-1.030); Urine Bacteria None Seen /HPF (<20); Urine Bilirubin NEGATIVE (Negative); Urine Blood Negative (Negative); Urine Clarity Clear (Clear); Urine Color Yellow (Yellow); Urine Glucose NEGATIVE (Negative); Urine Mucus Slight /HPF (None Seen); Urine Protein 1+ (Negative); Urine RBC None Seen /HPF (None Seen); Urine Urobilinogen Normal (Normal); Urine pH 6.5 (5.0-7.0)
[2022-10-23] MEDS: GLIPIZIDE S.A. 5 MG TAB PO SCH (08:58)
[2022-10-23] MEDS: NEBIVOLOL HCL 5 MG TAB PO SCH (08:59)
[2022-10-23] MEDS: ASCORBIC ACID 500 MG TABLET PO SCH (08:59)
[2022-10-23] MEDS: GABAPENTIN 300 MG CAP PO SCH ×2 (08:59→16:10)
[2022-10-23] MEDS: POTASSIUM CL SA 10 MEQ TAB PO SCH (09:00)
[2022-10-23] MEDS: AMLODIPINE 5 MG TAB PO SCH (09:00)
[2022-10-23] MEDS: LORATADINE 10 MG TAB PO SCH (09:00)
[2022-10-23] MEDS: allopurinoL 300 MG TAB PO SCH (09:00)
[2022-10-23] MEDS: VALSARTAN 160 MG TAB PO SCH (09:00)
[2022-10-23 11:03] LABS: Absolute Lymphocytes (CBC) 4.6 K/uL (0.7-4.9); Hematocrit 40.9 % (39.6-49.0); Lymphocytes % 44.2 % (15.3-44.8); MCV 96.8 fL (80-100); RBC Red Blood Cell Count 4.23 M/uL (4.33-5.43)
[2022-10-23 11:20] LABS: Albumin 2.7 g/dL (3.4-5.0); Bilirubin Total 0.6 mg/dL (0.2-1.0); C-Reactive Protein 59.9 mg/L (<3.00); Potassium 3.7 mEq/L (3.5-5.1); Protein, Total 6.8 g/dL (6.4-8.2)
[2022-10-23 11:58] LABS: Blood Morphology Comment NOT SEEN (NOT SEEN); Platelet Estimate ADEQ; White Blood Cell Scan OK (OK)
--- NOTE | 2022-10-23 14:26 | EKG ---
Test Date: 2022-10-21 Test Time: 08:38:19 Hull Inspector: HAYDEE MEASUREMENT RESULTS: Intervals: Rate: 105 RI: 162 QRSD: 82 QT: 344 QTc: 454 [place]: P: 53 RI: 162 QRS: 13 T: 58 INTERPRETIVE STATEMENTS: Sinus tachycardia Possible Inferior infarct, age undetermined Abnormal ECG No previous ECG available for comparison Electronically Signed On 10-23-22 14:24:10 CDT by Lincoln Richter
[2022-10-23] MEDS ORDERED: dexAMETHasone 10 MG/ML VIAL IV ONE (14:59)
[2022-10-23 17:46] VITALS: BP 132/60; TEMP 98; O2SAT 94
[2022-10-23 20:48] LABS: C.diff Antigen/Toxin Ag neg : Tox neg (NEG : NEG)
== END 2022-10-23 16:45 | disposition home or self-care (01) | DRG 815 ==
LOC: ER 08:24 → ERHOLD 13:40 → 2ND 16:45 → OBSVTOIN 10-23 05:08 → 4TH 10-23 06:34
PROVIDERS: ADMIT Hospitalist; ATTEND Hospitalist
PROC: 5A09457 Assistance with Respiratory Ventilation, 24-96 Consecutive Hours, Continuous Positive Airway Pressure (ICD-10-PCS; principal; 2022-10-23)
DX: L04.9 Acute lymphadenitis, unspecified (principal); Z68.43 Body mass index [BMI] 50.0-59.9, adult; E66.01 Morbid (severe) obesity due to excess calories; E11.40 Type 2 diabetes mellitus with diabetic neuropathy, unspecified; M10.9 Gout, unspecified; I10 Essential (primary) hypertension; E78.5 Hyperlipidemia, unspecified; E78.00 Pure hypercholesterolemia, unspecified; R09.02 Hypoxemia; Z90.49 Acquired absence of other specified parts of digestive tract; Z79.84 Long term (current) use of oral hypoglycemic drugs; Z91.012 Allergy to eggs; Z91.040 Latex allergy status; Z91.013 Allergy to seafood; Z91.018 Allergy to other foods; Z79.899 Other long term (current) drug therapy; Z20.822 Contact with and (suspected) exposure to COVID-19
CPT/HCPCS: 36415; 70450; 71045; 71275; 74177; 80053; 81001; 82550; 82947; 83605; 83735; 83880; 84145; 84484; 85025; 85610; 85730; 86140; 87040; 87045; 87046; 87086; 87088; 87324; 87635; 87804; 93005; 94660; 96361; 96365; 96375; 99285; G0378; J1100; J1720; J2543; J7030; J7613; J7644; Q9967

== ENCOUNTER → 2022-11-09 | Day surgery (SDC) | payer BC ==
[~2022-11-09] MED LIST: FENTANYL CITR 100 MCG/2 ML ONE; FLUMAZENIL 0.1 MG/ML (5 mL VIAL) IV ONE; MIDAZOLAM HCL 2 MG/2 ML INJ ONE; NA CHLORIDE 0.9% 1,000 ML ONE; NALOXONE 0.4 MG/ML VIAL ONE
[2022-11-09 11:16] VITALS: BP 117/51; TEMP 97.4; O2SAT 99; BMI 51.0
--- NOTE | 2022-11-09 11:52 | RAD REPORT ---
EXAM DESCRIPTION: CT - Abdomen Pelvis Wo Contrast - 11/09/2022 10:51 am CLINICAL HISTORY: Left inguinal mass BX COMPARISON: Abdomen Pelvis W Contrast dated 10/21/2022; Abdomen Pelvis W Contrast dated 10/07/2016 TECHNIQUE: Patient initially presented for CT-guided left inguinal lymph node core biopsy. Initial T hin cut axial CT imaging of the abdomen and pelvis was performed without IV contrast, revealing the f indings below. All CT scans are performed using dose optimization technique as appropriate and may include automated exposure control or mA/KV adjustment according to patient size. FINDINGS: No suspicious findings in the lung bases. Stigmata of cirrhosis with nodular contour of the liver appearing layering hyperdense material within the gallbladder suggestive of sludge. Spleen is again enlarged. Adrenal glands, and pancreas show no suspicious findings. Fat stranding and serpiginous soft tissue densities adjacent to the distal esop hagus, may relate to some paraesophageal varicosities. Symmetric renal contour, without suspicious parenchymal findings within limits of noncontrast techniq ue. No evidence of radiopaque calculi or hydroureteronephrosis. No dilated bowel loops or bowel wall thickening. Colonic diverticulosis. No free air, free fluid or i nflammatory stranding. Evaluation of the left inguinal lymph nodes reveals marked interval decrease in size and associated i nflammatory changes. The largest lymph node just medial to the common femoral vein now measures 2.6 c entimeter in greatest dimension, previously measured up to 3.1 centimeter. Other lymph nodes more sup erficially demonstrate more significant interval decrease in size. Interval improvement of left pelvi c sidewall adenopathy as well, with the largest residual node measuring 1.4 centimeter compared to 2. 7 centimeter in greatest dimension previously. Fat stranding along the left iliac chain region has si nce resolved. The urinary bladder is suboptimally distended, without significant finding. No suspicious bony findings. IMPRESSION: Marked interval improvement of left inguinal and left pelvic sidewall adenopathy as abov e. Infectious or inflammatory etiology is favored. Biopsy is not warranted at this time. As clinicall y indicated, a follow-up CT in 6 months may be helpful to demonstrate stability. Other stable findings including stigmata of liver cirrhosis and splenomegaly.
== END ==
LOC: DS 07:53
PROVIDERS: ATTEND Surgery
DX: R59.0 Localized enlarged lymph nodes (principal); K74.60 Unspecified cirrhosis of liver; R16.1 Splenomegaly, not elsewhere classified; Z53.8 Procedure and treatment not carried out for other reasons
CPT/HCPCS: 74176; J7030; J2250; J2310; J3010

== ENCOUNTER 2023-12-20 06:43 | Day surgery (SDC) | payer BC ==
[2023-12-18 15:32] LABS: Absolute Eosinophils 0.2 K/uL (0-0.5); Absolute Lymphocytes (CBC) 0.9 K/uL (0.7-4.9); Absolute Monocytes 0.4 K/uL (0.1-1.3); Absolute Neutrophil 2.3 K/uL (1.8-8.0); Basophils % 0.8 % (0-1.3); Eosinophils % 4.3 % (0-4.4); Hematocrit 40.4 % (39.6-49.0); Hemoglobin 13.6 g/dL (13.6-17.9); Lymphocytes % 24.9 % (15.3-44.8); MCH 34.8 pg (27.0-35.0); MCHC 33.7 g/dL (32.0-36.0); MCV 103.3 fL (80-100); MPV 8.9 fL (7.6-11.3); Platelets 113 thou/uL (152-406); RBC Red Blood Cell Count 3.91 M/uL (4.33-5.43)
[2023-12-18 15:46] LABS: Anion Gap 8.1 mEq/L (5.0-15.0); Potassium 4.1 mEq/L (3.5-5.1)
--- NOTE | 2023-12-19 17:47 | EKG ---
Test Date: 2023-12-18 Test Time: 14:47:59 Guard Lieutenant: MIKIE MEASUREMENT RESULTS: Intervals: Rate: 79 OR: 170 QRSD: 92 QT: 426 QTc: 488 [place]: P: 18 OR: 170 QRS: 6 T: 45 INTERPRETIVE STATEMENTS: Sinus rhythm with occasional premature ventricular complexes and fusion complexes Prolonged QT Abnormal ECG Compared to ECG 10/21/2022 08:38:19 Fusion complex(es) now present Ventricular premature complex(es) now present Prolonged QT interval now present Sinus tachycardia no longer present Myocardial infarct finding no longer present Electronically Signed On 12-19-23 17:45:32 CDT by Moises Gage
[2023-12-20] MEDS: NA CHLORIDE 0.9% 1,000 ML ONE (07:50)
[2023-12-20] MEDS ORDERED: propofoL 200 MG/20 ML VIAL IV ONE (09:14)
[2023-12-20] MEDS ORDERED: LIDOCAINE 1% MPF 5 ML VIAL ONE (09:14)
[2023-12-20 10:43] VITALS: TEMP 97.3; O2SAT 97
[2023-12-20 10:44] VITALS: BP 114/61
== END 2023-12-20 10:35 | disposition home or self-care (01) ==
LOC: OR 06:43
PROVIDERS: ATTEND Internal Medicine Gastroenterology
PROC: 0DJD8ZZ Inspection of Lower Intestinal Tract, Via Natural or Artificial Opening Endoscopic (ICD-10-PCS; principal; 2023-12-20 08:00)
DX: Z12.11 Encounter for screening for malignant neoplasm of colon (principal); K57.30 Diverticulosis of large intestine without perforation or abscess without bleeding; K64.8 Other hemorrhoids; Z86.010 Personal history of colon polyps
CPT/HCPCS: 93005; 85025; 80048; 36415; 82947 ×2; 45378; J2704; J2001; J7030

== ENCOUNTER 2024-08-14 12:19 | Day surgery (SDC) | payer BC ==
[2024-08-13 12:15] LABS: Absolute Eosinophils 0.1 K/uL (0-0.5); Absolute Lymphocytes (CBC) 0.7 K/uL (0.7-4.9); Absolute Monocytes 0.4 K/uL (0.1-1.3); Absolute Neutrophil 3.9 K/uL (1.8-8.0); Basophils % 0.6 % (0-1.3); Eosinophils % 2.8 % (0-4.4); Hematocrit 37.7 % (39.6-49.0); Hemoglobin 13.1 g/dL (13.6-17.9); Lymphocytes % 14.4 % (15.3-44.8); MCH 35.4 pg (27.0-35.0); MCHC 34.8 g/dL (32.0-36.0); MCV 101.7 fL (80-100); MPV 9.1 fL (7.6-11.3); Monocytes % 7.4 % (3.3-12.3); Neutrophils % 74.8 % (41.7-73.7); Platelets 126 thou/uL (152-406); Red Cell Distribution Width 13.3 % (12.1-15.2)
[2024-08-13 12:33] LABS: Anion Gap 8.9 mEq/L (5.0-15.0); Potassium 3.9 mEq/L (3.5-5.1)
[2024-08-14] MEDS: NA CHLORIDE 0.9% 1,000 ML ONE (13:15)
[2024-08-14] MEDS ORDERED: MIDAZOLAM HCL 2 MG/2 ML INJ ONE ×2 (13:22→13:41)
[2024-08-14] MEDS ORDERED: propofoL 200 MG/20 ML VIAL IV ONE ×2 (13:22→13:41)
[2024-08-14] MEDS ORDERED: LIDOCAINE 1% MPF 5 ML VIAL ONE (13:22)
[2024-08-14] MEDS ORDERED: ONDANSETRON 4 MG/2 ML VIAL ONE (13:41)
[2024-08-14] MEDS ORDERED: dexAMETHasone 10 MG/ML VIAL ONE (13:41)
[2024-08-14] MEDS ORDERED: KETOROLAC 30 MG/ML INJ ONE (13:41)
[2024-08-14] MEDS ORDERED: LIDOCAINE HCL/EPINEPHRINE 20 ML MDV ONE (13:41)
[2024-08-14] MEDS ORDERED: FENTANYL CITR 100 MCG/2 ML ONE (13:41)
[2024-08-14] MEDS ORDERED: LIDOCAINE 2% MPF 5 ML VIAL ONE (13:41)
[2024-08-14] MEDS: CEFAZOLIN SODIUM 2 GM/VIAL ONE (14:15)
--- NOTE | 2024-08-14 14:41 | P.OP ---
Preoperative diagnosis: LEFT Lower extremity chronic wound Postoperative diagnosis: LEFT Lower extremity chronic wound Primary procedure: Debridement of LEFT Lower extremity chronic wound Secondary procedure: Pulse lavage of left lower leg wound Anesthesia: GETA Estimated blood loss: <10cc Specimen: debridement tissue Findings: 15 x 13 cm chronic wound of left lower leg Complications: None Implants: none Transferred to: Recovery Room Condition: Good
[2024-08-14 15:28] VITALS: TEMP 97.4
[2024-08-14 17:01] VITALS: BP 122/50; O2SAT 97
== END 2024-08-14 16:20 | disposition home or self-care (01) ==
LOC: OR 12:19
PROVIDERS: ATTEND Surgery
PROC: 0HDLXZZ Extraction of Left Lower Leg Skin, External Approach (ICD-10-PCS; 2024-08-14)
PROC: 0JDP0ZZ Extraction of Left Lower Leg Subcutaneous Tissue and Fascia, Open Approach (ICD-10-PCS; principal; 2024-08-14 14:15)
DX: S81.802D Unspecified open wound, left lower leg, subsequent encounter (principal); L03.116 Cellulitis of left lower limb; E11.622 Type 2 diabetes mellitus with other skin ulcer; I89.0 Lymphedema, not elsewhere classified
CPT/HCPCS: 36415; 80048; 82947; 85025; 93005; J1100; J2003; J2250; J2405; J2704; J3010; J7030